=== PATIENT | female | born 1975 | race Caucasian/White ===

== ENCOUNTER 2024-10-21 12:19 | Emergency (ER) | payer OTHER ==
--- NOTE | 2024-10-21 13:20 | ED ---
Back Pain HPI - General Chief Complaint: Back Pain/Injury Stated Complaint: back pain Time Seen by Provider: 10/21/24 12:31 Source: patient, RN notes reviewed Limitations: no limitations - History of Present Illness Initial Comments: 49-year-old female presenting to the emergency department with left sided nerve irritation. States that this is a ongoing issue over the past few weeks and is scheduled for an outpatient MRI for further evaluation. States the pain starts in her lower spine and radiates down the posterior leg into her toes. She denies precipitating fall or injury. Denies loss of bladder bowel continence or saddle anesthesias or history of IV drug use. States she is prescribed gabapentin in addition to Robaxin and ibuprofen 800. Denies hematuria, dysuria decrease in urinary frequency or urgency. - Related Data Allergies Allergy/AdvReac Type Severity Reaction Status Date / Time No Known Allergies Allergy Verified 10/21/24 12:52 Review of Systems ROS Statement: Those systems with pertinent positive or pertinent negative responses have been documented in the HPI. ROS Other: All systems not noted in ROS Statement are negative. Past Medical History Past Medical History: Cancer, Heart Failure, Hyperlipidemia, Hypertension Additional Past Medical History / Comment(s): djd Past Surgical History: Hysterectomy, Orthopedic Surgery Additional Past Surgical History / Comment(s): breast mass removed left Smoking Status: Current every day smoker General Exam Limitations: no limitations General appearance: alert, in no apparent distress Neck exam: Present: normal inspection. Absent: tenderness, meningismus, lymphadenopathy Respiratory exam: Present: normal lung sounds bilaterally. Absent: respiratory distress, wheezes, rales, rhonchi, stridor Cardiovascular Exam: Present: regular rate, normal rhythm, normal heart sounds. Absent: systolic murmur, diastolic murmur, rubs, gallop, clicks GI/Abdominal exam: Present: soft, normal bowel sounds. Absent: distended, tenderness, guarding, rebound, rigid Extremities exam: Present: normal inspection, full ROM, normal capillary refill. Absent: tenderness, pedal edema, joint swelling, calf tenderness Back exam: Present: tenderness. Absent: CVA tenderness (R), CVA tenderness (L) Expanded Back exam: Positive Straight Leg Raise: Left Course Vital Signs 10/21/24 10/21/24 12:49 14:26 Temperature 97.9 F 98 F Pulse Rate 100 74 Respiratory 20 18 Rate Blood Pressure 200/100 150/90 O2 Sat by Pulse 98 99 Oximetry Medical Decision Making - Medical Decision Making Was pt. sent in by a medical professional or institution (, [facility], [facility], urgent care, hospital, or fpc...) When possible be specific @ -No Did you speak to anyone other than the patient for history (EMS, parent, family, police, friend...)? What history was obtained from this source @ -No Did you review nursing and triage notes (agree or disagree)? Why? @ -I reviewed and agree with nursing and triage notes Were old charts reviewed (outside hosp., previous admission, EMS record, old EKG, old radiological studies, urgent care reports/EKG's, fpc records)? Report findings @ -No old charts were reviewed Differential Diagnosis (chest pain, altered mental status, abdominal pain women, abdominal pain men, vaginal bleeding, weakness, fever, dyspnea, syncope, headache, dizziness, GI bleed, back pain, seizure, CVA, palpatations, mental health, musculoskeletal)? @ -Differential Back Pain: Strain, zoster, cauda equina syndrome, epidural abscess, vertebral osteomyelitis, discitis, fracture, subluxation, disc herniation, DJD, spinal stenosis, dissection, AAA, pancreatitis, peptic ulcer disease, pyelonephritis, kidney stone, this is not meant to be an all-inclusive list. EKG interpreted by me (3pts min.). @ -None X-rays interpreted by me (1pt min.). @ -None done CT interpreted by me (1pt min.). @ -None done U/S interpreted by me (1pt. min.). @ -None done What testing was considered but not performed or refused? (CT, X-rays, U/S, labs)? Why? @ -None What meds were considered but not given or refused? Why? @ -None Did you discuss the management of the patient with other professionals (prof sanchez i.e. [facility] Aparicio, HEEL C[facility]TER, lab, RT, psych nurse, manager social, contract preparer, teacher, chief lifestyle officer, case work aide)? Give summary @ -No Was smoking cessation discussed for >3mins.? @ -No Was critical care preformed (if so, how long)? @ -No Were there social determinants of health that impacted care today? How? (Homelessness, low income, unemployed, alcoholism, drug addiction, transportation, low edu. Level, literacy, decrease access to med. care, fpc, rehab)? @ -No Was there de-escalation of care discussed even if they declined (Discuss DNR or withdrawal of care, Hospice)? DNR status @ -No What co-morbidities impacted this encounter? (DM, HTN, Smoking, COPD, CAD, Cancer, CVA, ARF, Chemo, Hep., AIDS, mental health diagnosis, sleep apnea, morbid obesity)? @ -None Was patient admitted / discharged? Hospital course, mention meds given and route, prescriptions, significant lab abnormalities, going to OR and other pertinent info. @ -Discharge. 41-year-old female presenting with sided rotation. Patient has a straight leg test of the left side. There are no red flag findings concerning for cauda equina. Neurological examination complete with no acute deficits. She is provided with dose of steroid and pain medication in addition to lidocaine cream. On reevaluation patient states she is feeling markedly better. Recommend she continue follow-up outpatient as scheduled. Continue supportive treatment at home. Case discussed with Dr. Do Undiagnosed new problem with uncertain prognosis? @ -No Drug Therapy requiring intensive monitoring for toxicity (Heparin, Nitro, Insulin, Cardizem)? @ -No Were any procedures done? @ -No Diagnosis/symptom? @ -sciatica Acute, or Chronic, or Acute on Chronic? @ -acute Uncomplicated (without systemic symptoms) or Complicated (systemic symptoms)? @ -uncomplicated Side effects of treatment? @ -No Exacerbation, Progression, or Severe Exacerbation? @ -No Poses a threat to life or bodily function? How? (Chest pain, [place], [place], pneumonia, PE, COPD, DKA, ARF, appy, cholecystitis, CVA, Diverticulitis, Homicidal, Suicidal, threat to staff... and all critical care pts) @ -No Disposition Clinical Impression: Sciatica, Lumbar back pain Disposition: HOME SELF-CARE Condition: Good Instructions (If sedation given, give patient instructions): Acute Low Back Pain (ED) Additional Instructions: Please return to the Emergency Department if symptoms worsen or any other concerns. Is patient prescribed a controlled substance at d/c from ED?: No Referrals: Nonstaff,Physician [Primary Care Provider] - 1-2 days Time of Disposition: 14:03
[2024-10-21] MEDS: MORPHINE SULFATE 4 MG/ML SYRINGE IM STA (13:35)
[2024-10-21] MEDS: methylPREDNISolone SOD SUCCI 125 MG/2 ML VIAL IM ONE (13:35)
[2024-10-21] MEDS: LIDOCAINE 4% CREAM 5 GM TUBE TOPICAL ONE (14:24)
[2024-10-21 14:28] VITALS: BP 150/90; PULSE 74; RESP 18; TEMP 98
== END 2024-10-21 16:35 | disposition home or self-care (01) ==
LOC: EC 12:19
DX: M54.42 Lumbago with sciatica, left side (principal); F17.200 Nicotine dependence, unspecified, uncomplicated
CPT/HCPCS: 99283; 96372 ×2; J2270; J2919